=== PATIENT | female | born 1950 | race African-American/Black ===

== ENCOUNTER 2018-04-09 14:26 | Emergency (ER) | payer OTHER ==
[~2018-04-09] VITALS: Ht 167.6 cm; Wt 92.1 kg
[2018-04-09 14:51] VITALS: BP_SYST 172
[2018-04-09 15:37] LABS: HEMATOCRIT 39.3 % (36-48); HEMOGLOBIN 12.6 g/dL (12.0-16.0); LYMPHOCYTES % (AUTO) 36.3 % (20.5-51.5); MEAN CORPUSCULAR HEMOGLOBIN 27 pg (27-31); MEAN CORPUSCULAR HGB CONC 32 % (32-36); MEAN CORPUSCULAR VOLUME 83 fL (79.0-98.0); MONOCYTES % (AUTO) 5.9 % (1.7-9.3); NEUTROPHILS % (AUTO) 55.2 % (40.0-70.0); PLATELET COUNT (AUTO) 269 K/uL (130-430); RED BLOOD CELL COUNT(AUTO) 4.73 MIL/uL (4.2-6.2); RED CELL DISTRIBUTION WIDTH 13.5 % (9.0-15.0)
[2018-04-09 15:38] LABS: BASOPHILS # (AUTO) 0.1 K/uL (0.0-0.2); BASOPHILS % (AUTO) 1.1 % (0.0-2.0); EOSINOPHILS # (AUTO) 0.1 K/uL (0.0-0.4); EOSINOPHILS % (AUTO) 1.5 % (0.0-4.0); LYMPHOCYTES # (AUTO) 2.9 K/uL (1.0-5.5); MONOCYTES # (AUTO) 0.5 K/uL (0.0-1.0); NEUTROPHILS # (AUTO) 4.5 K/uL (1.8-7.7)
[2018-04-09 15:44] LABS: CALCIUM 9.5 mg/dL (8.4-11.0); CREATININE 1.15 mg/dL (0.55-1.30); POTASSIUM 3.9 mmol/L (3.5-5.1)
[2018-04-09 15:47] LABS: PROTHROMBIN TIME 9.9 SECS (9.5-12.5)
[2018-04-09 15:49] LABS: ALBUMIN 3.5 g/dL (3.4-4.8); TOTAL BILIRUBIN 0.3 mg/dL (0.0-1.0)
--- NOTE | 2018-04-09 17:05 | NUR ---
Patient to ER h1 to gown for evaluation. Side rails up.
--- NOTE | 2018-04-09 17:10 | NUR ---
Pt [id number] presents to ED c/o intermittent 6/10 R ankle and R leg pain x 4 weeks. Pt denies trauma/injuries to site. No other injuries/complaints per pt/noted. Will continue to monitor.
--- NOTE | 2018-04-09 17:20 | NUR ---
Pablo Peñaloza at bedside examining patient.
[2018-04-09] MEDS ORDERED: ONDANSETRON 4 MG ODT TAB PO ONE (17:45)
[2018-04-09] MEDS ORDERED: HYDROcodone/ACETAMIN 5-325 MG TAB (NORCO/ VICODIN) PO ONE (17:45)
[2018-04-09] MEDS ORDERED: IBUPROFEN 600 MG TABLET PO ONE (17:45)
--- NOTE | 2018-04-09 18:30 | NUR ---
Pt refused norco and zofran. Ibuprofen 600mg PO administered. Pt tolerated well. No adverse reactions noted.
[2018-04-09 19:09] VITALS: BP_SYST 151
--- NOTE | 2018-04-09 19:09 | NUR ---
Patient given written and verbal discharge instructions and verbalizes understanding. ER MD discussed with patient the results and treatment provided. Patient in stable condition. ID arm band removed. Rx of Ibuprofen and [place] given. Patient educated on pain management and to follow up with PMD. Pain Scale 0. Opportunity for questions provided and answered. Medication side effect fact sheet provided.
--- NOTE | 2018-04-09 19:59 | NUR ---
Note undone in EDM - 04/10/18 at 0632 by [email or web address] Patient given written and verbal discharge instructions and verbalizes understanding. ER discussed with patient the results and treatment provided. Patient in stable condition. ID arm band removed. Rx of Ibuprofen and [place] given. Patient educated on pain management and to follow up with PMD. Pain Scale 0. Opportunity for questions provided and answered. Medication side effect fact sheet provided.
== END 2018-04-09 19:09 | disposition home or self-care (01) ==
LOC: SED 14:26
DX: M79.604 Pain in right leg (principal); I10 Essential (primary) hypertension; Z88.8 Allergy status to other drugs, medicaments and biological substances
CPT/HCPCS: 36415; 80053; 85025; 85610-TC; 85730-TC; 93971; 99284; Q0162